=== PATIENT | male | born 1970 | race African-American/Black ===

== ENCOUNTER 2017-09-21 17:23 | Emergency (ER) | payer OTHER ==
[~2017-09-21] VITALS: Ht 193 cm; Wt 73.4 kg
[~2017-09-21 17:23] MED LIST: BENTYL10 MG PO; FLEXERIL10 MG PO; NAPROSYN500 MG PO; PREDNISONE20 MG PO; ULTRAM50 MG PO; ZANTAC150 MG PO
[2017-09-21 19:01] LABS: HEMATOCRIT 43.1 % (38.0-50.0); HEMOGLOBIN 15.4 G/DL (12.5-16.6); MCH 33.6 PG (29.0-34.0); MCHC 35.7 G/DL (30.0-36.0); MCV 94.1 FL (86-99); PLATELET COUNT 203 K/uL (156-360); RBC DIS.WIDTH-CV 12.2 % (11.8-14.6); RBC DIS.WIDTH-SD 42.6 % (39-53); RED BLOOD COUNT 4.58 M/uL (4.00-5.50)
[2017-09-21 19:09] LABS: CHLORIDE 107 mEq/L (99-109); SODIUM 140 mEq/L (136-147)
[2017-09-21 19:11] LABS: GLUCOSE 98 mg/dL (70-99)
[2017-09-21 19:15] LABS: CREATININE 1.2 mg/dL (0.6-1.3); GFR ESTIMATE (CALCULATED) > 59 mL/min/ (58.99-99999)
[2017-09-21 19:16] LABS: UREA NITROGEN (BUN) 17 mg/dL (9-23)
[2017-09-21] MEDS ORDERED: VIBRAMYCIN100 MG PO (19:56)
[2017-09-21 20:23] VITALS: BP 133/92
== END 2017-09-21 20:24 | disposition home or self-care (01) ==
LOC: EME 17:23
PROVIDERS: Physician Assistant Medical
DX: L03.115 Cellulitis of right lower limb (principal); F17.200 Nicotine dependence, unspecified, uncomplicated
CPT/HCPCS: 73590; 80048; 85027; 99281; 99283